=== PATIENT | female | born 1975 | race Caucasian/White ===

== ENCOUNTER 2017-10-21 16:27 | Emergency (ER) | payer MEDICARE, MEDICAID ==
--- NOTE | 2017-10-21 16:49 | ER Document Report ---
HPI - HPI Pain Level: 4 Notes: Patient is a 42-year-old female no significant past medical history who presents to the ED complaining of left medial elbow/distal humerus pain 3 days without known injury. Patient states that she woke up and had some swelling in that area that has been painful. Patient states that the swelling has not progressed and her skin has not become erythemic. The pain does not radiate. Patient states that she is primarily concerned with a possible blood clot even though she does not have a history of previous blood clot. Patient states that she is still able to use her arm at the shoulder joint, elbow, and wrist without any difficulties otherwise. She denies any smoking, hormone use, IV drug use, cancer history, prolonged immobilization, recent surgery/trauma, previous DVT/PE. Patient states that she otherwise feels well and has been eating and drinking without any difficulties. She has no other concerns or complaints at this time. Denies any headache, fever, URI, sore throat, chest pain, palpitations, syncope, cough, shortness of breath, wheeze, dyspnea, abdominal pain, nausea/vomiting/diarrhea, urinary retention, dysuria, hematuria , loss of control of bowel or bladder, numbness/tingling, muscle paralysis/ weakness, or rash. - ROS Systems Reviewed and Negative: Yes All other systems reviewed and negative Past Medical History - Social History Smoking Status: Never Smoker Family History: Reviewed & Not Pertinent Vertical Provider Document - CONSTITUTIONAL Agree With Documented VS: Yes Notes: PHYSICAL EXAMINATION: GENERAL: Well-appearing, well-nourished and in no acute distress. HEAD: Atraumatic, normocephalic. EYES: Pupils equal round and reactive to light, extraocular movements intact, sclera anicteric, conjunctiva are normal. ENT: Nares patent and without discharge. oropharynx clear without exudates. No tonsilar hypertrophy or erythema. Moist mucous membranes. NECK: Normal range of motion, supple without lymphadenopathy LUNGS: Breath sounds clear to auscultation bilaterally and equal. No wheezes rales or rhonchi. HEART: Regular rate and rhythm without murmurs, rubs, gallops. Musculoskeletal: Lt arm: There is a mild swollen area to the medial elbow near the epicondyle w/o any erythema, fluctuance, induration, abscess, streaks, or discharge. + tenderness associated. FROM to passive/active. Strength 5+/5 w/o signs of rupture to the biceps tendon. No joint effusion or swelling. No tenderness at the olecranon. N/V intact distal. No bony tenderness otherwise. Extremities: No cyanosis, clubbing, or edema b/l. Peripheral pulses 2+. Capillary refill less than 3 seconds. NEUROLOGICAL: Normal speech, normal gait. PSYCH: Normal mood, normal affect. SKIN: Warm, Dry, normal turgor, no rashes or lesions noted. - INFECTION CONTROL TRAVEL OUTSIDE OF THE [place] IN LAST 30 DAYS: No Course - Re-evaluation Re-evalutation: 10/21/17 17:32 Patient is an afebrile, well-hydrated, 42-year-old female who presents to the ED with a superficial thromboembolism to the basilic vein of the left medial arm. Vitals are acceptable without any significant tachycardia, tachypnea, or hypoxia. PE is otherwise unremarkable for any neurovascular compromise, obvious tendon/ligament rupture, obvious fracture/dislocation, septic joint. See Doppler ultrasound. X-ray was unremarkable for any acute pathology. No other labs or imaging warranted at this time based on H&P. Patient is nontoxic- appearing is tolerating p.o. without difficulties. As reviewed with Dr. Thrasher : Treatment consists of moist warm heat and anti-inflammatories. Conservative measures for symptoms. Recheck with your PCM in 2-3 days. Return to the ED with any worsening/concerning symptoms otherwise as reviewed in discharge. Patient is in agreement. - Vital Signs Vital signs: Temp Pulse Resp BP Pulse Ox 99.3 F 70 16 193/101 H 100 10/21/17 16:35 10/21/17 16:35 10/21/17 16:35 10/21/17 16:35 10/21/17 16:35 Discharge - Discharge Clinical Impression: Arm thromboembolism, superficial, acute Qualifiers: Laterality: left Qualified Code(s): I82.612 - Acute embolism and thrombosis of superficial veins of left upper extremity Condition: Stable Disposition: HOME, SELF-CARE Instructions: Superficial Phlebitis ([facility]) Additional Instructions: Rest, Elevation Tylenol/ibuprofen as needed Light stretches daily Strength exercises as able Moist heat F/u with your PCP in 2-3 days for a recheck Return to the ED with any worsening symptoms and/or development of fever, headache, chest pain, palpitations, syncope, shortness of breath, trouble breathing, abdominal pain, n/v/d, muscle weakness/paralysis, numbness/tingling, swelling, redness, or other worsening symptoms that are concerning to you. Prescriptions: Meloxicam 7.5 mg PO BID PRN #30 tablet PRN Reason: Forms: Elevated Blood Pressure Referrals: NKECHI PERDOMO DDS [ACTIVE STAFF] - 10/24/17
--- NOTE | 2017-10-21 17:06 | RADIOLOGY REPORT (SQ) ---
EXAM DESCRIPTION: ELBOW LEFT OVER 2 VIEWS COMPLETED DATE/TIME: 10/21/2017 4:58 pm REASON FOR STUDY: medial pain near the elbow COMPARISON: None. NUMBER OF VIEWS: Four views. TECHNIQUE: AP, lateral, and both oblique radiographic images acquired of the left elbow. LIMITATIONS: None. FINDINGS: MINERALIZATION: Normal. BONES: No acute fracture or dislocation. No worrisome bone lesions. JOINT: No effusion. SOFT TISSUES: No soft tissue swelling. No foreign body. OTHER: No other significant finding. IMPRESSION: NEGATIVE STUDY OF THE LEFT ELBOW. NO RADIOGRAPHIC EVIDENCE OF ACUTE INJURY. TECHNICAL DOCUMENTATION: JOB ID: [id number] [employer]- All Rights Reserved Reading location - IP/workstation name: [email or web address]
[2017-10-21 17:55] VITALS: BP 162/92
--- NOTE | 2017-10-22 11:20 | XCELERA REPORT ---
[address] [address] Upper Extremity Venous Evaluation Name: DAVI GOLDEN Age: 42 yrs Gender: Female : 1975 Patient Status: Emergency Patient Location: ER Study Date: 10/21/2017 05:07 PM Procedure: Unilateral duplex scan of the left upper extremity veins was performed, including responses to compression and other maneuvers. Reason For Study: LUE swelling, pain Ordering Physician: LEXY VILLALTA PA-C Performed By: Epifanio Collins Left Sided Venous Evaluation Superficial thrombus, occluding part of Basilic vein noted. Otherwise normal vessel filling wall to wall, compression and augmentation as well as Colour flow down to the forearm veins. Interpretation Summary No duplex evidence of DVT or obstruction in the left upper extremity. Superficial phlebitis as noted. : LEXY VILLALTA PA-C > Eros Simon
== END 2017-10-21 17:56 | disposition home or self-care (01) ==
LOC: ER 16:27
DX: I82.612 Acute embolism and thrombosis of superficial veins of left upper extremity (principal); M25.522 Pain in left elbow
CPT/HCPCS: 93971; 99284